=== PATIENT | female | born 1995 ===

== ENCOUNTER 2017-03-19 22:15 | Emergency (ER) | payer BC ==
[2017-03-19 22:20] VITALS: BP 128/77; PULSE 119; RESP 17; TEMP 98.4; O2SAT 97
--- NOTE | 2017-03-19 22:35 | ED PDOC ---
HPI: CCC, URI, Sore Throat Time Seen by Provider: 03/19/17 22:33 Chief Complaint (Nursing): ENT Problem Chief Complaint (Provider): lef tear pain Location Of Pain: Ear(s) (left no drainage (+) pain. no swimming. ) Associated Symptoms: denies: Fever, Chills, Sore Throat, Cough, Sputum, Neck Pain, Sinus Drainage, Myalgias, Nasal Congestion, Nausea, Vomiting, Diarrhea Past Medical History Reviewed: Historical Data, Nursing Documentation, Vital Signs Vital Signs: Last Vital Signs Temp 98.4 F 03/19/17 22:17 Pulse 119 H 03/19/17 22:17 Resp 17 03/19/17 22:17 BP 128/77 03/19/17 22:17 Pulse Ox 97 03/19/17 22:17 - Medical History PMH: No Chronic Diseases - Family History Family History: States: No Known Family Hx - Home Medications Home Medications: Ambulatory Orders Medication Instructions Recorded Ciprofloxacin/Hydrocortisone 1 - 2 drop OT BID #10 ml 03/19/17 [Cipro Hc Otic Suspension] - Allergies Allergies/Adverse Reactions: Allergies Allergy/AdvReac Type Severity Reaction Status Date / Time No Known Allergies Allergy Verified 03/19/17 22:19 Physical Exam - Reviewed Nursing Documentation Reviewed: Yes Vital Signs Reviewed: Yes - Physical Exam Appears: Positive for: Well, Non-toxic, No Acute Distress ENT: Positive for: TM Is/Are (left no visible, canal swelling noted. tragus tenderness noted no pinssa swelling noted. no mastoid tenderness noted. ) Cardiovascular/Chest: Positive for: Regular Rate, Rhythm Respiratory: Positive for: CNT, Normal Breath Sounds Neurologic/Psych: Positive for: Alert, Oriented - ECG O2 Sat by Pulse Oximetry: 97 Medical Decision Making Medical Decision Making: pt will be d.cc on oculofflox and advised to f.u with ENT. stable VS and well appearing. Disposition - Clinical Impression Clinical Impression: Otitis externa - Patient ED Disposition Is Patient to be Admitted: No Counseled Patient/Family Regarding: Diagnosis, Need For Followup, Rx Given - Disposition Disposition: Routine/Home Disposition Time: 22:35 Condition: STABLE Prescriptions: Ciprofloxacin/Hydrocortisone [Cipro Hc Otic Suspension] 1 - 2 drop OT BID #10 ml Instructions: Otitis Externa (ED) Forms: [employer] (Thai)
== END 2017-03-19 22:44 | disposition home or self-care (01) ==
LOC: H.ER 22:15
DX: H60.92 Unspecified otitis externa, left ear (principal)